=== PATIENT | male | born 1935 | race Two or more races ===

== ENCOUNTER 2017-07-12 11:50 | Outpatient (CLI) | payer OTHER | END 2017-07-12 18:03 | disposition home or self-care (01) | LOC: RAD 11:50 | DX: M25.552 Pain in left hip (principal) ==

== ENCOUNTER 2018-02-16 09:58 | Outpatient (CLI) | payer OTHER | END 2018-02-16 10:17 | disposition home or self-care (01) | LOC: TOM 09:58 | DX: R10.84 Generalized abdominal pain (principal) ==